=== PATIENT | male | born 1950 | race Caucasian/White ===

== ENCOUNTER 2018-04-05 16:40 | Outpatient (REF) | payer MEDICARE, OTHER, SELFPAY ==
[2018-04-05 17:57] LABS: BUN 19 mg/dL (7-18); C-Reactive Protein 1.35 mg/dL (0.0-0.3); CREATININE 0.96 mg/dL (0.70-1.30)
[2018-04-05 18:11] LABS: Mean Corp. HGB Concentration 32.4 g/dL (32.0-36.0); Mean Corpuscular Hemoglobin 28.5 pg (27.0-33.0); Mean Corpuscular Volume 88.1 fL (80-95); Mean Platelet Volume 9.7 fL (8.0-11.0); Platelet Count 302 x1000/uL (130-400); RBC 3.86 m/cumm (4.50-6.00); White Blood Cell Count 6.85 k/cumm (4.4-10.8)
[2018-04-05 19:29] LABS: ESR 29 MM/HR (1-20)
== END 2018-04-05 17:00 ==
LOC: LBN 16:40
PROVIDERS: Visit Provider Nurse Practitioner Primary Care
DX: M86.20 Subacute osteomyelitis, unspecified site (principal); L03.90 Cellulitis, unspecified; Z79.2 Long term (current) use of antibiotics
CPT/HCPCS: 84520; 85027; 85652; 82565; 86140

== ENCOUNTER 2018-04-12 16:26 | Outpatient (REF) | payer MEDICARE, OTHER, SELFPAY ==
[2018-04-12 17:29] LABS: BUN 23 mg/dL (7-18); C-Reactive Protein 0.79 mg/dL (0.0-0.3); CREATININE 1.06 mg/dL (0.70-1.30)
[2018-04-12 18:18] LABS: HCT 34.6 % (40.0-50.0); HGB 11.4 g/dL (13.5-17.5); Mean Corp. HGB Concentration 32.9 g/dL (32.0-36.0); Mean Corpuscular Hemoglobin 28.6 pg (27.0-33.0); Mean Corpuscular Volume 86.7 fL (80-95); Platelet Count 328 x1000/uL (130-400); RBC 3.99 m/cumm (4.50-6.00); RBC Distribution Width 15.9 % (11.8-14.1); White Blood Cell Count 8.03 k/cumm (4.4-10.8)
[2018-04-12 18:51] LABS: ESR 20 MM/HR (1-20)
== END 2018-04-12 16:46 ==
LOC: LBN 16:26
PROVIDERS: Visit Provider Nurse Practitioner Primary Care
DX: M86.9 Osteomyelitis, unspecified (principal); B95.61 Methicillin susceptible Staphylococcus aureus infection as the cause of diseases classified elsewhere; Z79.2 Long term (current) use of antibiotics; D64.9 Anemia, unspecified; Z86.14 Personal history of Methicillin resistant Staphylococcus aureus infection
CPT/HCPCS: 84520; 85027; 85652; 82565; 86140

== ENCOUNTER 2018-04-19 12:55 | Outpatient (REF) | payer MEDICARE, OTHER, SELFPAY ==
[2018-04-19 14:30] LABS: Anion Gap 11.9 mmol/L (3-11); BUN 23 mg/dL (7-18); CO2 29.1 mmol/L (21.0-32.0); CREATININE 1.17 mg/dL (0.70-1.30); Chloride 100 mmol/L (98-107); Magnesium 1.7 mg/dL (1.8-2.4); Potassium 3.8 mmol/L (3.5-5.1); Sodium 141 mmol/L (136-145)
[2018-04-19 14:35] LABS: Abs Immature Grans 0.01 k/cumm (0.0-0.09); Absolute Basophil Count 0.03 k/cumm (0.0-0.2); Absolute Eosinophil Count 0.59 k/cumm (0.0-0.7); Absolute Lymphocyte Count 1.52 k/cumm (1.2-3.4); Absolute Monocyte Count 0.57 k/cumm (0.11-0.7); Absolute Neutrophil Count 3.64 k/cumm (1.2-6.7); Basophils % 0.5; Eosinophils % 9.3; HCT 36.1 % (40.0-50.0); HGB 11.7 g/dL (13.5-17.5); Immature Grans % 0.2; Lymphocytes % 23.9; Mean Corp. HGB Concentration 32.4 g/dL (32.0-36.0); Mean Corpuscular Hemoglobin 28.5 pg (27.0-33.0); Mean Platelet Volume 10.5 fL (8.0-11.0); Neutrophils % 57.1; Platelet Count 228 x1000/uL (130-400); White Blood Cell Count 6.36 k/cumm (4.4-10.8)
== END 2018-04-19 13:15 ==
LOC: LBN 12:55
PROVIDERS: Visit Provider Nurse Practitioner Primary Care
DX: B95.61 Methicillin susceptible Staphylococcus aureus infection as the cause of diseases classified elsewhere (principal); Z79.2 Long term (current) use of antibiotics; D64.9 Anemia, unspecified; Z86.14 Personal history of Methicillin resistant Staphylococcus aureus infection; M86.9 Osteomyelitis, unspecified
CPT/HCPCS: 80051; 84520; 82565; 83735; 85025

== ENCOUNTER 2018-04-26 13:24 | Outpatient (REF) | payer MEDICARE, OTHER, SELFPAY ==
[2018-04-26 13:58] LABS: HCT 37.4 % (40.0-50.0); HGB 12.2 g/dL (13.5-17.5); Mean Corp. HGB Concentration 32.6 g/dL (32.0-36.0); Mean Corpuscular Hemoglobin 28.5 pg (27.0-33.0); Mean Corpuscular Volume 87.4 fL (80-95); Mean Platelet Volume 10.3 fL (8.0-11.0); Platelet Count 222 x1000/uL (130-400); RBC 4.28 m/cumm (4.50-6.00); RBC Distribution Width 15.8 % (11.8-14.1); White Blood Cell Count 6.43 k/cumm (4.4-10.8)
[2018-04-26 14:19] LABS: Anion Gap 9.6 mmol/L (3-11); BUN 19 mg/dL (7-18); C-Reactive Protein 0.86 mg/dL (0.0-0.3); CO2 31.4 mmol/L (21.0-32.0); Chloride 100 mmol/L (98-107); Magnesium 1.8 mg/dL (1.8-2.4); Potassium 4.1 mmol/L (3.5-5.1); Sodium 141 mmol/L (136-145)
[2018-04-26 14:31] LABS: ESR 29 MM/HR (1-20)
== END 2018-04-26 13:44 ==
LOC: LBN 13:24
PROVIDERS: Visit Provider Nurse Practitioner Primary Care
DX: M86.9 Osteomyelitis, unspecified (principal); B95.61 Methicillin susceptible Staphylococcus aureus infection as the cause of diseases classified elsewhere; D64.9 Anemia, unspecified; Z79.2 Long term (current) use of antibiotics
CPT/HCPCS: 80051; 84520; 85027; 85652; 82565; 83735; 86140

== ENCOUNTER 2018-05-03 12:39 | Outpatient (REF) | payer MEDICARE, OTHER, SELFPAY ==
[2018-05-03 13:35] LABS: Abs Immature Grans 0.01 k/cumm (0.0-0.09); Absolute Basophil Count 0.05 k/cumm (0.0-0.2); Absolute Eosinophil Count 0.66 k/cumm (0.0-0.7); Absolute Lymphocyte Count 1.61 k/cumm (1.2-3.4); Absolute Monocyte Count 0.58 k/cumm (0.11-0.7); Absolute Neutrophil Count 3.74 k/cumm (1.2-6.7); Basophils % 0.8; Eosinophils % 9.9; HCT 40.2 % (40.0-50.0); HGB 13.4 g/dL (13.5-17.5); Immature Grans % 0.2; Lymphocytes % 24.2; Mean Corp. HGB Concentration 33.3 g/dL (32.0-36.0); Mean Corpuscular Hemoglobin 28.9 pg (27.0-33.0); Mean Corpuscular Volume 86.8 fL (80-95); Mean Platelet Volume 10.1 fL (8.0-11.0); Monocytes % 8.7; Neutrophils % 56.2; Platelet Count 254 x1000/uL (130-400); RBC 4.63 m/cumm (4.50-6.00); RBC Distribution Width 15.6 % (11.8-14.1); White Blood Cell Count 6.65 k/cumm (4.4-10.8)
[2018-05-03 14:03] LABS: Anion Gap 11.4 mmol/L (3-11); BUN 23 mg/dL (7-18); C-Reactive Protein 0.99 mg/dL (0.0-0.3); CO2 31.6 mmol/L (21.0-32.0); CREATININE 1.05 mg/dL (0.70-1.30); Chloride 100 mmol/L (98-107); Potassium 4.2 mmol/L (3.5-5.1); Sodium 143 mmol/L (136-145)
[2018-05-03 15:09] LABS: ESR 26 MM/HR (1-20)
== END 2018-05-03 12:59 ==
LOC: LBN 12:39
PROVIDERS: Visit Provider Internal Medicine
DX: M86.9 Osteomyelitis, unspecified (principal); L89.620 Pressure ulcer of left heel, unstageable
CPT/HCPCS: 80051; 84520; 85652; 82565; 83735; 85025; 86140

== ENCOUNTER 2018-05-10 12:30 | Outpatient (REF) | payer MEDICARE, OTHER, SELFPAY ==
[2018-05-10 13:35] LABS: HCT 38.2 % (40.0-50.0); HGB 12.7 g/dL (13.5-17.5); Mean Corp. HGB Concentration 33.2 g/dL (32.0-36.0); Mean Corpuscular Volume 87.2 fL (80-95); Mean Platelet Volume 10.5 fL (8.0-11.0); Platelet Count 239 x1000/uL (130-400); RBC 4.38 m/cumm (4.50-6.00); RBC Distribution Width 15.4 % (11.8-14.1); White Blood Cell Count 6.55 k/cumm (4.4-10.8)
[2018-05-10 13:48] LABS: Anion Gap 9.1 mmol/L (3-11); BUN 23 mg/dL (7-18); C-Reactive Protein 1.13 mg/dL (0.0-0.3); CO2 30.9 mmol/L (21.0-32.0); Chloride 103 mmol/L (98-107); Magnesium 1.9 mg/dL (1.8-2.4); Potassium 4.2 mmol/L (3.5-5.1); Sodium 143 mmol/L (136-145)
[2018-05-10 14:23] LABS: ESR 28 MM/HR (1-20)
== END 2018-05-10 12:50 ==
LOC: LBN 12:30
PROVIDERS: Visit Provider Pathology Anatomic Pathology & Clinical Pathology
DX: E11.622 Type 2 diabetes mellitus with other skin ulcer (principal); M86.9 Osteomyelitis, unspecified
CPT/HCPCS: 80051; 84520; 85027; 85652; 82565; 83735; 86140

== ENCOUNTER 2018-07-03 18:32 | Outpatient (REF) | payer MEDICARE, OTHER, SELFPAY ==
[2018-07-03 19:14] LABS: Bilirubin Small (Negative); Blood Trace-lysed (Negative); Clarity Sl Cloudy; Glucose Negative (Negative); Ketones 40 mg/dL (Negative); Leukocyte Esterase Moderate (Negative); Nitrite Negative (Negative); Urobilinogen 0.2 EU/dL (Up TO 0.2)
[2018-07-03 19:21] LABS: Bacteria Many HPF (Negative); C & S Indicated? C&S Done As Ordered; Casts Negative LPF (Negative); Crystals Negative HPF (Negative); Epithelial Cells Negative HPF (Negative); Mucus Negative (Negative); Other Cells Few Renal (Negative); RBC Negative (0-2); WBC >50 HPF (0-5)
== END 2018-07-03 18:52 ==
LOC: LBN 18:32
PROVIDERS: Visit Provider Internal Medicine
DX: N39.0 Urinary tract infection, site not specified (principal); E11.622 Type 2 diabetes mellitus with other skin ulcer
CPT/HCPCS: 87077; 81003; 81015; 87086; 87186

== ENCOUNTER 2023-07-13 13:50 | Outpatient (REF) | payer MEDICARE, OTHER, SELFPAY ==
[2023-07-13 15:11] LABS: ALT 143 U/L (16-63); AST 221 U/L (15-37); Albumin 3.1 g/dL (3.4-5.0); Alkaline Phosphatase 221 U/L (46-116); Anion Gap 11.3 mmol/L (3-11); BUN 23 mg/dL (7-18); Bilirubin, Total 0.7 mg/dL (0.2-1.0); C-Reactive Protein 0.62 mg/dL (<or=0.5); CO2 29.7 mmol/L (21.0-32.0); CREATININE 1.2 mg/dL (0.70-1.30); Calcium 8.5 mg/dL (8.5-10.1); Chloride 102 mmol/L (98-107); Estimated GFR 63.46 (mL/min/1.73m2); Glucose 157 mg/dL (74-106); Potassium 4.6 mmol/L (3.5-5.1); Sodium 143 mmol/L (136-145); Total Protein 6.2 g/dL (6.4-8.2)
[2023-07-13 15:17] LABS: Abs Immature Grans 0.03 10^3/uL (0.0-0.06); Absolute Basophil Count 0.04 10^3/uL (0.0-0.2); Absolute Eosinophil Count 0.21 10^3/uL (0.0-0.7); Absolute Lymphocyte Count 0.74 10^3/uL (1.2-3.4); Absolute Monocyte Count 0.41 10^3/uL (0.1-0.8); Absolute Neutrophil Count 4.82 10^3/uL (1.2-6.7); Basophils % 0.6; Eosinophils % 3.4; HCT 32.6 % (40.0-50.0); HGB 10.4 g/dL (13.5-17.5); Immature Grans % 0.5; Lymphocytes % 11.8; MCH 29.8 pg (27.0-33.0); MCHC 31.9 % (32.0-36.0); MCV 93 fL (80-95); MPV 9.7 fL (8.0-11.0); Monocytes % 6.6; Neutrophils % 77.1; Platelet Count 221 10^3/uL (130-400); RBC 3.49 10^6/uL (4.36-5.78); RDW 18.1 % (11.8-14.1); RDW-SD 62.3 fL; WBC 6.25 10^3/uL (4.4-10.8)
== END 2023-07-13 13:51 | disposition home or self-care (01) ==
LOC: LBN 13:50
PROVIDERS: Visit Provider Internal Medicine Infectious Disease
DX: E83.39 Other disorders of phosphorus metabolism (principal); E27.40 Unspecified adrenocortical insufficiency; T84.52XD Infection and inflammatory reaction due to internal left hip prosthesis, subsequent encounter; Z79.2 Long term (current) use of antibiotics
CPT/HCPCS: 80053; 85025; 86140

== ENCOUNTER 2023-07-20 13:04 | Outpatient (REF) | payer MEDICARE, OTHER, SELFPAY ==
[2023-07-20 15:10] LABS: Abs Immature Grans 0.03 10^3/uL (0.0-0.06); Absolute Basophil Count 0.04 10^3/uL (0.0-0.2); Absolute Eosinophil Count 0.09 10^3/uL (0.0-0.7); Absolute Lymphocyte Count 0.87 10^3/uL (1.2-3.4); Absolute Monocyte Count 0.52 10^3/uL (0.1-0.8); Basophils % 0.6; Eosinophils % 1.4; HCT 31.9 % (40.0-50.0); HGB 10.3 g/dL (13.5-17.5); Immature Grans % 0.5; Lymphocytes % 13.9; MCH 29.9 pg (27.0-33.0); MCHC 32.3 % (32.0-36.0); MCV 93 fL (80-95); MPV 9.9 fL (8.0-11.0); Monocytes % 8.3; Neutrophils % 75.3; Platelet Count 182 10^3/uL (130-400); RBC 3.44 10^6/uL (4.36-5.78); RDW 17.2 % (11.8-14.1); RDW-SD 58.8 fL; WBC 6.25 10^3/uL (4.4-10.8)
[2023-07-20 15:26] LABS: ALT 217 U/L (16-63); AST 302 U/L (15-37); Alkaline Phosphatase 218 U/L (46-116); Anion Gap 7.1 mmol/L (3-11); BUN 21 mg/dL (7-18); Bilirubin, Total 0.7 mg/dL (0.2-1.0); CO2 29.9 mmol/L (21.0-32.0); CREATININE 0.9 mg/dL (0.70-1.30); Calcium 8.5 mg/dL (8.5-10.1); Chloride 103 mmol/L (98-107); Estimated GFR 89.62 (mL/min/1.73m2); Glucose 142 mg/dL (74-106); Sodium 140 mmol/L (136-145); Total Protein 5.8 g/dL (6.4-8.2)
== END 2023-07-20 13:05 | disposition home or self-care (01) ==
LOC: LBN 13:04
PROVIDERS: Visit Provider Internal Medicine Infectious Disease
DX: D62 Acute posthemorrhagic anemia (principal); E83.39 Other disorders of phosphorus metabolism; E27.40 Unspecified adrenocortical insufficiency; T84.52XD Infection and inflammatory reaction due to internal left hip prosthesis, subsequent encounter; Z79.2 Long term (current) use of antibiotics
CPT/HCPCS: 80053; 85025

== ENCOUNTER 2023-07-27 15:48 | Outpatient (REF) | payer MEDICARE, OTHER, SELFPAY ==
[2023-07-27 18:20] LABS: Abs Immature Grans 0.02 10^3/uL (0.0-0.06); Absolute Basophil Count 0.04 10^3/uL (0.0-0.2); Absolute Eosinophil Count 0.15 10^3/uL (0.0-0.7); Absolute Lymphocyte Count 0.73 10^3/uL (1.2-3.4); Absolute Monocyte Count 0.54 10^3/uL (0.1-0.8); Absolute Neutrophil Count 5.07 10^3/uL (1.2-6.7); Basophils % 0.6; Eosinophils % 2.3; HCT 33.7 % (40.0-50.0); HGB 10.9 g/dL (13.5-17.5); Immature Grans % 0.3; Lymphocytes % 11.1; MCH 29.6 pg (27.0-33.0); MCHC 32.3 % (32.0-36.0); MCV 92 fL (80-95); MPV 9.9 fL (8.0-11.0); Monocytes % 8.2; Neutrophils % 77.5; Platelet Count 222 10^3/uL (130-400); RBC 3.68 10^6/uL (4.36-5.78); RDW 16.6 % (11.8-14.1); RDW-SD 56.2 fL; WBC 6.55 10^3/uL (4.4-10.8)
[2023-07-27 18:36] LABS: ALT 204 U/L (16-63); AST 249 U/L (15-37); Albumin 3.2 g/dL (3.4-5.0); Alkaline Phosphatase 243 U/L (46-116); Anion Gap 11.4 mmol/L (3-11); BUN 14 mg/dL (7-18); Bilirubin, Total 0.8 mg/dL (0.2-1.0); C-Reactive Protein 2.27 mg/dL (<or=0.5); CO2 27.6 mmol/L (21.0-32.0); CREATININE 0.8 mg/dL (0.70-1.30); Calcium 8.4 mg/dL (8.5-10.1); Chloride 101 mmol/L (98-107); Estimated GFR 92.87 (mL/min/1.73m2); Glucose 169 mg/dL (74-106); Potassium 4.2 mmol/L (3.5-5.1); Sodium 140 mmol/L (136-145); Total Protein 6.2 g/dL (6.4-8.2)
== END 2023-07-27 15:49 | disposition home or self-care (01) ==
LOC: LBN 15:48
PROVIDERS: Visit Provider Internal Medicine Infectious Disease
DX: T84.52XD Infection and inflammatory reaction due to internal left hip prosthesis, subsequent encounter (principal)
CPT/HCPCS: 80053; 85025; 86140

== ENCOUNTER 2023-08-03 13:01 | Outpatient (REF) | payer MEDICARE, OTHER, SELFPAY ==
[2023-08-03 13:32] LABS: Abs Immature Grans 0.04 10^3/uL (0.0-0.06); Absolute Basophil Count 0.05 10^3/uL (0.0-0.2); Absolute Eosinophil Count 0.17 10^3/uL (0.0-0.7); Absolute Lymphocyte Count 1.06 10^3/uL (1.2-3.4); Absolute Monocyte Count 0.44 10^3/uL (0.1-0.8); Absolute Neutrophil Count 6.09 10^3/uL (1.2-6.7); Basophils % 0.6; Eosinophils % 2.2; HCT 35.8 % (40.0-50.0); HGB 11.2 g/dL (13.5-17.5); Immature Grans % 0.5; Lymphocytes % 13.5; MCH 29.2 pg (27.0-33.0); MCHC 31.3 % (32.0-36.0); MCV 93 fL (80-95); Monocytes % 5.6; Neutrophils % 77.6; Platelet Count 279 10^3/uL (130-400); RBC 3.84 10^6/uL (4.36-5.78); RDW 16.2 % (11.8-14.1); RDW-SD 55.2 fL; WBC 7.85 10^3/uL (4.4-10.8)
[2023-08-03 13:38] LABS: ALT 80 U/L (16-63); AST 82 U/L (15-37); Albumin 3.4 g/dL (3.4-5.0); Alkaline Phosphatase 205 U/L (46-116); Anion Gap 7.4 mmol/L (3-11); BUN 15 mg/dL (7-18); Bilirubin, Total 0.8 mg/dL (0.2-1.0); C-Reactive Protein 1.72 mg/dL (<or=0.5); CO2 32.6 mmol/L (21.0-32.0); CREATININE 0.9 mg/dL (0.70-1.30); Calcium 8.9 mg/dL (8.5-10.1); Chloride 102 mmol/L (98-107); Estimated GFR 89.62 (mL/min/1.73m2); Glucose 164 mg/dL (74-106); Potassium 4.5 mmol/L (3.5-5.1); Sodium 142 mmol/L (136-145); Total Protein 6.7 g/dL (6.4-8.2)
== END 2023-08-03 13:02 | disposition home or self-care (01) ==
LOC: LBN 13:01
PROVIDERS: PCP Nurse Practitioner Adult Health; Visit Provider Internal Medicine Infectious Disease
DX: T84.52XD Infection and inflammatory reaction due to internal left hip prosthesis, subsequent encounter (principal); Z96.642 Presence of left artificial hip joint
CPT/HCPCS: 80053; 85025; 86140

== ENCOUNTER 2023-08-20 11:21 | Emergency (ER) | payer OTHER, SELFPAY ==
[2023-08-20 11:30] VITALS: BP 161/73; PULSE 83; RESP 18; TEMP 36.6; O2SAT 99
--- NOTE | 2023-08-20 12:09 | ED.GENADUL_ITS ---
Discharge Plan Disposition Patient Disposition: Home Condition: Stable Discharge Details Clinical Impression: Malaise Primary Care Provider: Ching Blair ED Provider: Mariel Ruiz Home Meds and New Rx's Prescriptions: Continued atenolol 25 MG tablet 25 mg PO DAILY metformin 500 MG tablet extended release 24hr 500 mg PO BID lisinopril 20 MG tablet 20 mg PO DAILY loratadine 10 MG tablet 10 mg PO DAILY diclofenac sodium 3 % gel 1 applic TOPICAL BID furosemide 40 mg tablet 40 mg PO ONCE thiamine mononitrate (vit B1) [Vitamin B-1 (mononitrate)] 100 mg tablet 100 mg PO ONCE aspirin 81 mg tablet,delayed release (DR/EC) 81 mg PO ONCE potassium chloride 20 mEq tablet,ER particles/crystals 20 meq PO ONCE trazodone 50 mg tablet 50 mg PO ONCE Discharge Instructions Additional Instructions: Recommendation for reassessment tomorrow with your primary care doctor Make sure you are having 3 solid meals a day and at least 8, 8 ounce glasses of water daily If your temperature is greater than 100.4 I do recommend reassessment Blood cultures and urine culture are pending at this time Please return should you start developing weakness, cough, hip pain, or should any new symptoms develop Referrals: Ching Blair [Primary Care Provider] - HPI General Date/Time Provider Initiated Documentation: 08/20/23 11:43 . HPI Narrative: This 72-year-old male with history of diabetes, hypertension presents with report of fatigue, fever 100.4, and urinary frequency for the past several days. Patient states recent hospitalization at [facility] status post septic post hip replacement with subsequent development of bowel obstruction and pneumonia discharged at the end of June from [facility]. Denies any nausea or vomiting. Denies any new plane aside from urinary discomfort. Denies any flank pain. Denies any weakness just reports fatigue. States his urine is slightly darker and urinating smaller amounts. Denies chest pain or shortness of breath. Denies any blood in stool. Related Data Home Medications Medication Instructions Recorded Confirmed atenolol 25 mg tablet 25 mg PO DAILY 03/06/13 08/20/23 metformin 500 mg tablet,extended 500 mg PO BID 03/06/13 08/20/23 release 24hr (osmotic) lisinopril 20 mg tablet 20 mg PO DAILY 08/19/17 08/20/23 loratadine 10 mg tablet 10 mg PO DAILY 08/19/17 08/20/23 aspirin 81 mg tablet,delayed 81 mg PO ONCE 08/20/23 08/20/23 release diclofenac sodium 3 % topical gel 1 applic topical BID 08/20/23 08/20/23 furosemide 40 mg tablet 40 mg PO ONCE 08/20/23 08/20/23 potassium chloride 20 mEq 20 meq PO ONCE 08/20/23 08/20/23 tablet,extended release(part/cryst) thiamine mononitrate (vit B1) 100 100 mg PO ONCE 08/20/23 08/20/23 mg tablet (Vitamin B-1 (mononitrate)) trazodone 50 mg tablet 50 mg PO ONCE 08/20/23 08/20/23 Allergies Allergy/AdvReac Type Severity Reaction Status Date / Time No Known Allergies Allergy Unverified 08/20/23 11:56 General Stated Complaint: Urinary RAMIN: 3 Course Vital Signs Vital signs: Vital Signs Temperature 36.6 C 08/20/23 11:30 Pulse 83 08/20/23 11:30 Respiratory Rate 18 08/20/23 11:30 Blood Pressure 161/73 H 08/20/23 11:30 Pulse Oximetry 99 08/20/23 11:30 Temperature 36.6 C 08/20/23 11:30 Pulse 83 08/20/23 11:30 Respiratory Rate 18 08/20/23 11:30 Respiratory Effort Normal 08/20/23 11:33 Blood Pressure 161/73 H 08/20/23 11:30 Pulse Oximetry 99 08/20/23 11:30 Lab/Test Results Lab/Test Results: 08/20/23 12:04 Blood Blood Culture - Pending 08/20/23 12:04 Blood Blood Culture - Pending Medical Decision Making This is a complex 72-year-old gentleman with recent hospitalization at [facility] for pneumonia, septic postoperative hip replacements, and bowel obstruction discharged approximately a month ago presenting with some dysuria, subjective fevers, and fatigue without weakness or chills Took Tylenol last at 530 this morning, has remained afebrile throughout this encounter Does have anemia, this is not grossly changed from his baseline when compared and he does not endorse any blood in his stool and is not anticoagulated Patient overall appears well, he is ambulatory at his baseline, cognitively intact, has a nontender abdominal exam, lungs are clear to auscultation, hip replacement without evidence of infection or wound dehiscence, no tenderness to the area Lungs are clear to auscultation, cardiac rate rhythm is regular Of note I spent approximately 15 minutes reviewing patient's [facility] discharge records, including ID notification, antibiotics during his stay, and diagnostic lab work Chest x-ray does not show evidence of acute abnormality per radiology interpretation my review Urinalysis without evidence of infection Will send urine culture and blood cultures given patient's complicated medical history This is a complex patient he will need close outpatient reassessment, placed on list for reevaluation tomorrow with his primary care physician I see no indication for antibiotics at this time Return precautions reviewed and patient expressed understanding, discharged home in the care of his Quality:SDOH Health Related Social Needs: No Data to Display PFSH All Active Problems (Updated 08/20/23 @ 15:21 by JOSE Padgett) Malaise (Acute) Social History Smoking/Tobacco Use Status: Former Tobacco Use Smoking risk assessment performed?: Yes Drug use: Never Do you feel safe in your relationship?: Yes
[2023-08-20 12:28] LABS: Lactate 1.6 mmol/L (0.6-1.4)
[2023-08-20 12:29] LABS: Abs Immature Grans 0.01 10^3/uL (0.0-0.06); Absolute Basophil Count 0.03 10^3/uL (0.0-0.2); Absolute Eosinophil Count 0.22 10^3/uL (0.0-0.7); Absolute Lymphocyte Count 1.46 10^3/uL (1.2-3.4); Absolute Monocyte Count 0.44 10^3/uL (0.1-0.8); Absolute Neutrophil Count 2.27 10^3/uL (1.2-6.7); Basophils % 0.7; HCT 30.8 % (40.0-50.0); Immature Grans % 0.2; MCH 28.9 pg (27.0-33.0); MCHC 32.5 % (32.0-36.0); MCV 89 fL (80-95); MPV 9.7 fL (8.0-11.0); Monocytes % 9.9; Neutrophils % 51.2; Platelet Count 191 10^3/uL (130-400); RBC 3.46 10^6/uL (4.36-5.78); RDW 15.1 % (11.8-14.1); RDW-SD 48.5 fL; WBC 4.43 10^3/uL (4.4-10.8)
[2023-08-20 12:47] LABS: ALT 14 U/L (16-63); AST 29 U/L (15-37); Albumin 2.7 g/dL (3.4-5.0); Alkaline Phosphatase 103 U/L (46-116); Anion Gap 9.1 mmol/L (3-11); BUN 5 mg/dL (7-18); Bilirubin, Total 1.1 mg/dL (0.2-1.0); CO2 26.9 mmol/L (21.0-32.0); CREATININE 0.7 mg/dL (0.70-1.30); Calcium 8.4 mg/dL (8.5-10.1); Chloride 100 mmol/L (98-107); Estimated GFR 96.69 (mL/min/1.73m2); Glucose 126 mg/dL (74-106); Potassium 3.8 mmol/L (3.5-5.1); Sodium 136 mmol/L (136-145); Total Protein 5.7 g/dL (6.4-8.2)
[2023-08-20 13:42] LABS: Bilirubin Small (Negative); Blood Negative (Negative); Clarity Clear (Clear); Glucose Negative (Negative); Ketones Trace mg/dL (Negative); Leukocyte Esterase Negative (Negative); Nitrite Negative (Negative); Specific Gravity 1.025 (1.005-1.025); Urobilinogen 0.2 mg/dL (Up to 0.2); pH 5.5 (5-8)
[2023-08-20 14:42] LABS: Bacteria Negative HPF (Negative); C & S Indicated? No; Casts Negative LPF (Negative); Crystals Negative HPF (Negative); Epithelial Cells Moderate HPF (Negative); Mucus Trace (Negative); RBC Negative HPF (0-2); WBC Negative HPF (0-5)
--- NOTE | 2023-08-20 14:45 | DI.RAD_ITS ---
Exam(s) XR CHEST 2V PA LATERAL EXAM: XR CHEST 2V PA LATERAL CLINICAL HISTORY: weakness TECHNIQUE: 2D digital imaging was performed. Two views. COMPARISON: No exams were available for comparison FINDINGS: The exam is limited by poor pulmonary inflation and semi-erect positioning. Right diaphragm is elev ated. HEART: Normal size. Aorta: Not dilated. TAVR. PULMONARY VASCULATURE: Normal. LUNGS: No visible infiltrates. PLEURAL SPACE: No pleural effusion or pneumothorax. BONE:Unremarkable for age. Soft tissues: Unremarkable. IMPRESSION: No acute abnormality. DATA REPOSITORY: RADIATION DOSE DELIVERED:
--- NOTE | 2023-08-20 15:26 | NUR.NOTE ---
Nursing Note: PT needs PCP follow up tomorrow/SHARON for re evaluation/ER visit follow up. Marlin, ED
[2023-08-20 15:54] VITALS: BP 114/61; PULSE 77; RESP 16; O2SAT 96
== END 2023-08-20 15:50 | disposition home or self-care (01) ==
PROVIDERS: Student in an Organized Health Care Education/Training Program; Emergency Provider Physician Assistant; PCP Nurse Practitioner Adult Health
DX: R53.81 Other malaise (principal); D64.9 Anemia, unspecified; I10 Essential (primary) hypertension; E11.9 Type 2 diabetes mellitus without complications; Z79.84 Long term (current) use of oral hypoglycemic drugs; Z79.899 Other long term (current) drug therapy
CPT/HCPCS: 36415; 80053; 87040; 99284; 71046; 81003; 81015; 83605; 85025; 87086

== ENCOUNTER 2023-08-26 13:46 | Emergency (ER) | payer OTHER, SELFPAY ==
[2023-08-26 13:50] VITALS: BP 123/74; PULSE 82; RESP 14; TEMP 36.4; O2SAT 95
--- NOTE | 2023-08-26 14:13 | ED.GENADUL_ITS ---
Discharge Plan Disposition Patient Disposition: Home Condition: Good Discharge Details Clinical Impression: Localized swelling of right upper extremity Primary Care Provider: Ching Blair ED Provider: Alejandro Mujica Mitchell Meds and New Rx's Prescriptions: Continued atenolol 25 MG tablet 25 mg PO DAILY metformin 500 MG tablet extended release 24hr 500 mg PO BID diclofenac sodium 3 % gel 1 applic TOPICAL BID furosemide 40 mg tablet 40 mg PO ONCE Hold Instructions: Complete thiamine mononitrate (vit B1) [Vitamin B-1 (mononitrate)] 100 mg tablet 100 mg PO ONCE aspirin 81 mg tablet,delayed release (DR/EC) 81 mg PO ONCE trazodone 50 mg tablet 50 mg PO ONCE Discharge Instructions Additional Instructions: You were seen for distal right upper extremity swelling. Your ultrasound does not reveal evidence of DVT. Your x-ray reveals chronic changes but nothing acute. Exam is not consistent with an infection. Please follow-up with primary care. Return to ED for any fever, increasing pain or swelling, redness, other concerns. Referrals: Ching Blair [Primary Care Provider] - HPI General Mode of arrival: wheelchair . Date/Time Provider Initiated Documentation: 08/26/23 14:13 . Limitations to Documentation: no limitations . Information obtained by: patient and family . HPI Narrative: Patient referred to ED by primary care for evaluation of right arm swelling. Patient did have a PICC line in his arm about 2 months ago. Now reporting swelling in the distal portion of the right arm over the last week. Denies any pain or color change. Denies any numbness or weakness. Grandson reminded him at the time of my evaluation that he was here a few days ago and had an IV placed. Patient cannot recall which arm the IV was in. There is no bruising to the area. Denies any injury to the area. Denies any chest pain or shortness of breath. Related Data Home Medications Medication Instructions Recorded Confirmed atenolol 25 mg tablet 25 mg PO DAILY 03/06/13 08/26/23 metformin 500 mg tablet,extended 500 mg PO BID 03/06/13 08/26/23 release 24hr (osmotic) aspirin 81 mg tablet,delayed 81 mg PO ONCE 08/20/23 08/26/23 release diclofenac sodium 3 % topical gel 1 applic topical BID 08/20/23 08/26/23 furosemide 40 mg tablet 40 mg PO ONCE 08/20/23 08/26/23 thiamine mononitrate (vit B1) 100 100 mg PO ONCE 08/20/23 08/26/23 mg tablet (Vitamin B-1 (mononitrate)) trazodone 50 mg tablet 50 mg PO ONCE 08/20/23 08/26/23 Allergies Allergy/AdvReac Type Severity Reaction Status Date / Time adhesive tape Allergy rash Unverified 08/26/23 15:36 General Stated Complaint: Vascular RAMIN: 3 Review of Systems Narrative: per HPI Exam Narrative Exam Narrative: Const: WDWN elderly male in NAD. VS per triage. HEENT: NC/AT. Normal facial exam. Eyes: Normal conjunctiva and sclera. Neck: Supple. Trachea midline. Lungs: Normal respiratory effort. Cor: RRR. Good radial pulses. Neuro: A+O x 3. Normal speech, mentation. Cranial nerves II - XII grossly intact. No gross motor or sensory deficit. Ext: No C/C. Localized swelling/edema to the right wrist/distal forearm. Hand is normal appearing. Strength, sensation, radial pulse normal. Normal ROM of wrist. No redness, tenderness. Course Vital Signs Vital signs: Vital Signs Temperature 97.5 F L 08/26/23 13:50 Pulse 82 08/26/23 13:50 Respiratory Rate 14 08/26/23 13:50 Blood Pressure 123/74 08/26/23 13:50 Pulse Oximetry 95 08/26/23 13:50 Temperature 97.5 F L 08/26/23 13:50 Temperature Source Oral 08/26/23 13:50 Pulse 82 08/26/23 13:50 Respiratory Rate 14 08/26/23 13:50 Respiratory Effort Normal, Non-Labored 08/26/23 14:04 Respiratory Depth Normal 08/26/23 14:04 Respiratory Pattern Normal 08/26/23 14:04 Blood Pressure 123/74 08/26/23 13:50 Blood Pressure Position Sitting 08/26/23 13:50 Pulse Oximetry 95 08/26/23 13:50 Oxygen Delivery Method Room Air 08/26/23 13:50 Oxygen Flow Rate 0 08/26/23 13:50 Pain Level 0 08/26/23 14:04 Medical Decision Making Patient presenting to ED with distal right upper extremity swelling. There is no associated tenderness, redness, neurovascular change. PICC line had been removed almost 2 months ago. Localized swelling is against DVT but will obtain ultrasound to rule this out. Previous ED visit documents that the IV was in his left upper extremity. Swelling is without pain or tenderness but is involving wrist area so will obtain x-ray to rule out bony problem. Ultrasound is negative for DVT. X-ray per my review with degenerative change and old healed fracture nothing acute. Patient will be discharged home to follow-up with primary care. Return precautions provided. Imaging Data Radiologic Study: Attestation: I personally reviewed and interpreted this imaging study as follows: Imaging: X-Ray My impression: Degenerative change. Old healed fracture. No acute fracture or dislocation or acute bony change. Quality:SDOH Health Related Social Needs: No Data to Display PFSH All Active Problems (Updated 08/26/23 @ 16:06 by Alejandro Mujica MD) Localized swelling of right upper extremity (Acute) Malaise (Acute) Medical History HTN (hypertension) Diabetes mellitus Anxiety Surgical History History of surgery multiple orthopedic procedures Social History Smoking/Tobacco Use Status: Former Tobacco Use Quit Date: 05/18/89 Smoking risk assessment performed?: Yes Alcohol Intake: former Drug use: Never Substance use type: does not use Housing: house Do you feel safe at home: Yes Do you feel safe in your relationship?: Yes
--- NOTE | 2023-08-26 14:15 | DI.RAD_ITS ---
Exam(s) XR WRIST RT COMPLETE EXAM: XR WRIST RT COMPLETE CLINICAL HISTORY: wrist swelling. TECHNIQUE: 2D digital imaging was performed. COMPARISON: No exams were available for comparison FINDINGS: 3 views No evidence of acute fracture nor carpal dislocation but there are significant degenerative changes i n the radiocarpal joint. Scapholunate distance normal. Multiple cysts are noted in the capitate. M oderate degenerative changes at the 1st carpometacarpal joint. There is a healed fracture site in the distal 3rd of the ulna and appearance of the ulnar styloid is of prior fracture. There is calcification noted within the radial artery. IMPRESSION: Degenerative changes. No acute fractures evident. DATA REPOSITORY: RADIATION DOSE DELIVERED:
--- NOTE | 2023-08-26 14:15 | DI.US_ITS ---
Exam(s) US UPPER EXTREMITY VENOUS RT EXAM: US UPPER EXTREMITY VENOUS RT CLINICAL HISTORY: RUE swelling TECHNIQUE: GRAYSCALE, COLOR, DOPPLER IMAGING OF THE VENOUS SYSTEM OF THE UPPER EXTREMITY-BILATERAL COMPARISON: No exams were available for comparison FINDINGS: Basilic vein: Patent. Normal color-flow and normal compression and augmentation properties. Brachial vein(s):Patent. Normal color flow. Normal compression and augmentation properties. Cephalic vein:Patent. Normal color flow. Normal compression and augmentation properties. Axillary vein: Patent. Normal color flow. Normal compression and augmentation properties. Visualized subclavian vein: Patent. No obvious intraluminal thrombus. IMPRESSION: 1. No evidence of venous thrombosis in the right upper extremity. DATA REPOSITORY:
[2023-08-26 15:47] VITALS: BP 101/62; PULSE 101; RESP 17; TEMP 36.6; O2SAT 95
== END 2023-08-26 16:45 | disposition home or self-care (01) ==
PROVIDERS: Emergency Provider Emergency Medicine; PCP Nurse Practitioner Adult Health
DX: R22.31 Localized swelling, mass and lump, right upper limb (principal); I10 Essential (primary) hypertension; E11.9 Type 2 diabetes mellitus without complications; Z79.84 Long term (current) use of oral hypoglycemic drugs; Z79.82 Long term (current) use of aspirin; Z87.891 Personal history of nicotine dependence
CPT/HCPCS: 99284; 73110; 93971